=== PATIENT | male | born 1975 | race African-American/Black ===

== ENCOUNTER 2016-09-11 00:41 | Emergency (ER) | payer MEDICAID ==
[~2016-09-11] VITALS: Ht 182.9 cm; Wt 91.0 kg
[2016-09-11 00:43] VITALS: BP 158/98
== END 2016-09-11 03:00 | disposition left against medical advice (07) ==
LOC: ER 00:43
DX: Z53.21 Procedure and treatment not carried out due to patient leaving prior to being seen by health care provider (principal)